=== PATIENT | female | born 1945 | race Two or more races ===

== ENCOUNTER 2019-05-05 08:16 | Outpatient (CLI) | payer OTHER ==
[~2019-05-05 08:16] MED LIST: ASA81 MG; EVISTA60 MG; SYNTHROID125 MCG
== END 2019-05-05 08:22 | disposition home or self-care (01) ==
LOC: LAB 08:16
DX: D68.8 Other specified coagulation defects (principal); I10 Essential (primary) hypertension

== ENCOUNTER 2019-05-05 08:51 | Outpatient (CLI) | payer OTHER | END 2019-05-05 08:53 | disposition home or self-care (01) | LOC: RAD 08:51 | DX: R07.89 Other chest pain (principal) ==

== ENCOUNTER → 2019-05-18 09:14 | Outpatient (CLI) | payer OTHER | END | disposition home or self-care (01) | LOC: EKG 09:14 | DX: I10 Essential (primary) hypertension (principal) ==

== ENCOUNTER 2022-06-21 08:11 | Emergency (ER) | payer OTHER ==
[~2022-06-21] VITALS: Ht 149.9 cm; Wt 63.5 kg
[2022-06-21] MEDS ORDERED: FOSAMAX70 MG PO (09:05)
== END 2022-06-21 17:30 | disposition home or self-care (01) ==
LOC: ER 08:11
DX: R10.2 Pelvic and perineal pain (principal); I87.8 Other specified disorders of veins

== ENCOUNTER 2022-06-24 20:02 | Inpatient (IN) | payer OTHER ==
[~2022-06-24] VITALS: Ht 121.9 cm; Wt 63.5 kg
[~2022-06-24 20:02] MED LIST changes: +FOSAMAX70 MG PO
--- NOTE | 2022-06-24 20:15 | NUR ---
SE RECIBE PTE FEMENINA DE 77 ANOS ALERTA Y ORIENTEADA X3 QUIEN REFIERE DOLOR ABDOMINAL ACOMPANADO POR VOMITOS. PTE REFEIRE YAMILETH VOMITADO 2 VECES EN LAS ULTIMAS 24 HR. SE MONITOREAN S/V Y SE UBICA EN OCTAVIA 08.
--- NOTE | 2022-06-24 21:01 | NUR ---
SE ORIENTA PTE SOBRE TX MEDICO EL CUAL REFIERE ENTENDER.SE LE EXTRAEN MUESTRAS BAJO MEDIDAS ASEPTICAS,SE CANALIZA Y SE COLOCAN FLUIDOS DE MANTENIMIENTOS,SE ENTREGA CONTRASTE PARA CT Y SE NOTIFICA EL MISMO.
--- NOTE | 2022-06-24 23:36 | NUR ---
PACIENTE ALERTA Y ORIENTADA X3. EN OCTAVIA CON BARANDAS ELEVADAS. IV FLUID PATENTE Y EVANS DE EDEMA Y ERITEMA. RECIBIENDO 0.9% NSS DE 1,000ML BAJANDO A 80ML/HR. PENDIENTE CT ORDENADO POR . SE MANTIENE BAJO OBSERVACION POR CAMBIOS SIGNIFICATIVOS.
--- NOTE | 2022-06-25 00:53 | NUR ---
PACIENTE ALERTA Y ORIENTADA X3. EN OCTAVIA CON BARANDAS ELEVADAS Y ACOMPANADA POR FAMILIAR. SE ADMINISTRA MEDICAMENTOS ORDENADO POR MD. SE REALIZA MUESTRA DE LABORATORIO. SE MANTIEN EBAJO OBSERVACION POR CAMBIOS SIGNIFICATIVOS. PACIENTE CONSULTADA CON MEDICINA INTERNA.
--- NOTE | 2022-06-25 06:57 | NUR ---
SE RECIBE PTE ALERTA Y ORIENTADA EN OCTAVIA BAJA CON BARANDAS ELEVADAS POR SEGURIDAD, SE OBSERVA CON BUEN PATRON RESPIRATORIO, RECIBIENDO IV FLUIDS PATENTE. AREA DE VENOPUNCION EVANS DE EDEMA Y ERITEMA. PEND CONS. DR PHAN. SE MANTIENE BAJO OBSERVACION POR CAMBIOS SIGNIFICATIVOS.
--- NOTE | 2022-06-25 16:05 | NUR ---
PTE ALERTA Y ORIENTADA X3 EN OCTAVIA CON BARANDAS ELEVADAS.PTE CANALIZADA AREA EVANS DE EDEMA Y DE ENROJECIMIENTO .PTE EN ESPERA DE CONSULTA CON MEDICINA INTERNA.
[2022-06-27] MEDS ORDERED: VITAMIN D350 MC4 (10:38)
[2022-06-27] MEDS ORDERED: CALTRATE 600+D1 EAC1 (10:38)
== END 2022-07-01 22:39 | disposition home or self-care (01) | DRG 354 ==
LOC: ER 20:02 → MEDJ 06-25 17:50 → SURH 06-29 15:29
PROVIDERS: Surgery; ADMIT Internal Medicine; ATTEND Internal Medicine
PROC: 0WQF0ZZ Repair Abdominal Wall, Open Approach (ICD-10-PCS; principal; 2022-06-29 12:00)
DX: K43.6 Other and unspecified ventral hernia with obstruction, without gangrene (principal); N39.0 Urinary tract infection, site not specified; K56.699 Other intestinal obstruction unspecified as to partial versus complete obstruction; Z20.822 Contact with and (suspected) exposure to COVID-19

== ENCOUNTER 2023-02-18 11:10 | Outpatient (CLI) | payer OTHER ==
[~2023-02-18 11:10] MED LIST changes: +CALTRATE 600+D1 EAC1; +VITAMIN D350 MC4
== END 2023-02-18 11:14 | disposition home or self-care (01) ==
LOC: RAD 11:10
PROVIDERS: ATTEND Internal Medicine Cardiovascular Disease
DX: M12.9 Arthropathy, unspecified (principal)

== ENCOUNTER 2023-03-12 08:59 | Outpatient (CLI) | payer OTHER | END 2023-03-12 09:03 | disposition home or self-care (01) | LOC: SONOGRAMA 08:59 | PROVIDERS: ATTEND Internal Medicine Cardiovascular Disease | DX: M12.9 Arthropathy, unspecified (principal) ==

== ENCOUNTER 2024-08-28 09:56 | Outpatient (CLI) | payer OTHER | END 2024-08-28 10:06 | disposition home or self-care (01) | LOC: MAMO-SONO 09:56 | PROVIDERS: ATTEND Obstetrics & Gynecology | DX: N64.4 Mastodynia (principal); Z12.31 Encounter for screening mammogram for malignant neoplasm of breast ==

== ENCOUNTER 2024-12-08 08:58 | Outpatient (CLI) | payer OTHER | END 2024-12-08 09:00 | disposition home or self-care (01) | LOC: NUCLEAR 08:58 | PROVIDERS: ATTEND Internal Medicine Cardiovascular Disease | DX: G30.9 Alzheimer's disease, unspecified (principal) | CPT/HCPCS: 78803; A9557 ==

== ENCOUNTER 2025-07-05 07:51 | Outpatient (CLI) | payer OTHER ==
[2025-07-05 08:38] LABS: BASO % 0.7 % (0.1-1.2); EOS # 0.20 (0.04-0.54); EOS % 2.9 % (0.7-7.0); LYMPH # 2.20 (1.18-3.74); LYMPH % 32.1 % (19.3-53.1); MEAN PLATELET VOLUME 10.10 fl (9.4-12.4); MONO # 0.38 (0.24-0.82); MONO % 5.5 % (4.7-12.5); NEUT # 4.01 (1.56-6.13); NEUT % 58.5 % (34.0-71.1); RED CELL DISTRIBUTION WIDTH 12.5 % (11.6-14.4)
[2025-07-05 09:03] LABS: INR 1.1
[2025-07-05 09:17] LABS: ALT/SGPT 21.0 U/L (12-78); AST/SGOT 17.0 U/L (15-37); BILIRUBIN TOTAL 0.66 mg/dL (0.3-1.2); BUN CREA RATIO 23.0 (7.0-25.0); CREATININE SERUM 0.65 mg/dL (0.55-1.02); GFR 87.7; GLOBULINA 3.4 G/DL (2.4-3.5); GLUCOSE FASTING 91.0 mg/dL (65-100); OSMOLALITY SERUM 284.0 MOSM/KG (275-295)
== END 2025-07-05 07:59 | disposition home or self-care (01) ==
LOC: RAD 07:51
PROVIDERS: ATTEND Ophthalmology
DX: D68.8 Other specified coagulation defects (principal); H25.013 Cortical age-related cataract, bilateral; Z01.811 Encounter for preprocedural respiratory examination; I10 Essential (primary) hypertension